=== PATIENT | male | born 1995 | race Caucasian/White ===

== ENCOUNTER → 2020-12-31 | Outpatient (CLI) | payer BC ==
--- NOTE | 2020-12-31 12:52 | Diagnostic Imaging Report ---
INDICATION: Palpable lump right neck. Interrogation of a lump in the right neck was performed. A ill-defined mixed echogenicity lesion at the area of interest in the right neck is noted measuring 2.9 x 1.1 x 0.7 cm. This does not have the typical appearance of a lymph node. Additional imaging would be recommended for better characterization. There is no fluid collection. IMPRESSION: Indeterminate lesion in the right neck in the area of palpable abnormality. Additional imaging with CT soft tissue neck with contrast is recommended for further evaluation. Dictated by: Dictated on workstation # [id number]
== END ==
LOC: RAD 12:30
PROVIDERS: ATTEND Nurse Practitioner Family
DX: R22.1 Localized swelling, mass and lump, neck (principal); M54.2 Cervicalgia
CPT/HCPCS: 76536